=== PATIENT | female | born 1965 | race Caucasian/White ===

== ENCOUNTER → 2020-06-17 | Outpatient (CLI) | payer BC ==
[~2020-06-17] MED LIST: EMPA10TA PO; GADOTERATE 5 MMOL/10ML VIAL. IVP ONE; INSU100V6 SQ; LEVO137T3 PO; LISI-338 PO; SIMV40TA18 PO; VENL75TA PO
--- NOTE | 2020-06-18 08:47 | KCIC ---
MRI pelvis without and with contrast HISTORY: Ovarian cyst, progressive pelvic pain. Contrast: 20 mL dotarem gadolinium intravenous contrast. COMPARISON: Pelvic ultrasound August 03, 2007. FINDINGS: Anteverted uterus. Cervix is normal without a cervical mucosal or stromal lesion evident. Vagina is normal. The uterine endometrium is poorly defined, at the lower uterine segment at the midline sagittal T2-weighted imaging there is a small portion of the endometrium with a normal thickness of 3 mm, otherwise the endometrium cannot be well delineated from the myometrium. At the upper uterine body and uterine fundus best demonstrated on the coronal and axial images there are 2 oval masslike foci isointense to myometrium demonstrating isoenhancement the right measuring approximately 3 cm the left measuring approximately 2.5 cm. Along the posterior uterus layering along the broad ligament and bridging between the adnexa there is a bilocular cystic mass which measures 10 cm AP by 6 cm craniocaudal by 7 cm transverse. No normal ovary can be identified, it is possible the ovaries are embedded within the lateral chowdhury of this cystic mass, both gonadal veins can be observed extending to mildly thickened soft tissue along the lower lateral chowdhury of this cystic mass likely representing ovarian tissue. This cyst demonstrates T1-weighted and T2-weighted hyperintense fluid, no T2 shading is evident. There is a single internal enhancing septation of the cyst with mild thickening of up to 4 mm. At the lower portion of the cyst contiguous with the septation there is a solid irregular T1 and T2-weighted hypointense component which demonstrates contrast enhancement best demonstrated axial images 11-13, coronal image 13 and sagittal images 17-20, which measures 2 cm in diameter. The upper rectum is abutted by this cystic mass, is otherwise unremarkable. Bladder is unremarkable. No pelvic fluid. No adenopathy. IMPRESSION: 1. Pelvic cystic mass lying along the posterior uterus and broad ligament bridging between the adnexa measures 10 x 6 x 7 cm. The mass has T1 and T2-weighted hyperintense hemorrhagic fluid. This is likely a large endometrioma although no confirmatory T2 hypointense shading of the fluid is present, which indicates the hemorrhagic fluid could either be due to endometrioma or a hemorrhagic cyst. There is a thickened internal septation of the cyst leading up to a 2 cm solid enhancing irregular intracystic nodule, which could represent a component of decidualized endometriosis or focal fibrosis given the T2-weighted hypointense signal of the nodule, although a solid enhancing component of endometrioid carcinoma is also a consideration. Both ovaries are poorly defined and appear to be associated with the lower lateral chowdhury of this cystic mass. 2. The uterine endometrium is ill-defined, at the lower uterine segment there is a small component which has a thickness of 3 mm, although the majority of the endometrium is not identifiable separate from the myometrium. The upper uterus demonstrates 2 nodular regions with isointense signal and enhancement to the surrounding myometrium obliterating the endometrium. While no myometrial cysts are present, these imaging features may indicate adenomyosis of the uterus. Imaging features are less typical for uterine leiomyomas. Uterine endometrial carcinoma with myometrial invasion is not excluded. Electronically signed by: Gautam Colon MD (06/18/2020 8:44 AM) [id number]
== END ==
LOC: KCIC MRI 08:20
PROVIDERS: ATTEND Nurse Practitioner Women's Health
DX: N94.89 Other specified conditions associated with female genital organs and menstrual cycle (principal); N83.201 Unspecified ovarian cyst, right side
CPT/HCPCS: 72197; 82565; A9575